=== PATIENT | female | born 1995 | race American Indian/Alaskan Native ===

== ENCOUNTER 2020-04-18 05:00 | Inpatient (IN) | payer BC, MEDICAID ==
[2020-04-18] MEDS: Lactated Ringers 1,000 ML IV ONE ×3 (06:10→12:45)
[2020-04-18] MEDS ORDERED: Citric Acid/Sodium Citrate Solution 30 ML Cup ONE (06:47)
[2020-04-18] MEDS ORDERED: Sodium Chloride 0.9% 10 ML Syringe FLUSH PRN (06:59)
[2020-04-18] MEDS ORDERED: Tranexamic Acid 1,000 MG in Sodium Chloride 0.9% 100 ML IV PRN (06:59)
[2020-04-18] MEDS ORDERED: ceFAZolin 2 GM in Premix Bag 1 BAG IV ONE (06:59)
[2020-04-18] MEDS ORDERED: Oxytocin/Normal Saline 30 UNIT/500 ML BAG IV SCH (07:00)
[2020-04-18] MEDS ORDERED: Citric Acid/Sodium Citrate Solution 30 ML Cup PO ONE (07:00)
[2020-04-18] MEDS ORDERED: Dexmedetomidine 200 MCG/2 ML SDV ONE (07:07)
[2020-04-18] MEDS ORDERED: Ropivacaine 0.5% 5 MG/ML 20 ML SDV ONE ×2 (07:07→15:52)
[2020-04-18] MEDS ORDERED: Succinylcholine 200 MG/10 ML MDV ONE (07:08)
[2020-04-18] MEDS ORDERED: Rocuronium 100 MG/10 ML MDV ONE (07:08)
[2020-04-18] MEDS ORDERED: Oxytocin/Normal Saline 60 UNIT/1,000 ML BAG ONE (07:10)
[2020-04-18] MEDS: Lactated Ringers 1,000 ML IV SCH ×3 (07:15→20:41)
[2020-04-18] MEDS ORDERED: Sodium Chloride 0.9% 100 ML ONE (07:21)
--- NOTE | 2020-04-18 07:25 | PCM.LDHP ---
L&D History of Present Illness - General Date of Service: 04/18/20 (pre-op H&P) Admit Problem/Dx: Admission Diagnosis/Problem Admission Diagnosis/Problem 04/18/20 07:18 24yo with SROM and labor --RCS, unclear dates Source of Information: Patient, Family, Old Records, Significant Other History Limitations: Reports: Altered Mental Status - History of Present Illness Introduction:: Came in with SROM and painful CXNs with hx of prior and declines . NST reactive, cat 1 strip. Timing/Duration: Reports: minutes: (2-3) Location, : Reports: Uterus Quality: Reports: Sharp Severity: Moderate - Related Data Allergies/Adverse Reactions: Allergies Allergy/AdvReac Type Severity Reaction Status Date / Time No Known Allergies Allergy Verified 04/18/20 07:15 Past Medical History - History Comment History Comment: see EPIC notes. Social & Family History - Tobacco Use Smoking Status *Q: Current Every Day Smoker - Recreational Drug Use Recreational Drug Type: Reports: Amphetamines (Speed), Marijuana/Hashish, Methamphetamine (Hx meth use--states Son, but admit screen positive) H&P Review of Systems - Review of Systems: Review Of Systems: Comprehensive ROS is negative, except as noted in HPI. L&D Exam - Exam Exam: See Below - Vital Signs Vital Signs: Last Vital Signs Temp 98.0 F 04/18/20 05:06 Pulse 102 H 04/18/20 05:06 Resp BP 139/93 H 04/18/20 05:06 Pulse Ox Weight: 199 lb - OB Specific Contraction Frequency (min): irregular tracing Contraction Intensity: Strong - Wahl Score Wahl Score Cervix Position: Midposition Wahl Score Consistency: Soft Wahl Score Dilation: 1-2 cm Wahl Score 's Station: +1, +2 - Exam General: Alert, Oriented HEENT: Conjunctiva Clear, EACs Clear, EOMI, Hearing Intact, Mucosa Moist & Filer , Nares Patent, Normal Nasal Septum, Posterior Pharynx Clear, TMs Clear, PERRLA Neck: Supple, Trachea Midline Lungs: Clear to Auscultation, Normal Respiratory Effort Cardiovascular: Regular Rate, Regular Rhythm GI/Abdominal Exam: Normal Bowel Sounds, Soft, Non-Tender, No Organomegaly, No Distention, No Abnormal Bruit, No Mass, Pelvis Stable Rectal Exam: Normal Exam, Normal Rectal Tone Genitourinary: Normal external exam, Normal bimanual exam, Normal speculum exam Back Exam: Normal Inspection, Full Range of Motion Extremities: Normal Inspection, Normal Range of Motion, Non-Tender, No Pedal Edema, Normal Capillary Refill Skin: Warm, Dry, Intact, Rash Neurological: Cranial Nerves Intact, Reflexes Equal Bilateral Psychiatric: Alert, Normal Affect, Normal Mood - Patient Data Lab Results Last 24 hrs: Laboratory Results - last 24 hr 04/18/20 04/18/20 04/18/20 Range/Units 05:25 05:25 05:25 Urine Color Yellow (YELLOW) Urine Appearance Slightly cloudy (CLEAR) Urine pH 7.5 (5.0-9.0) Ur Specific [place] 1.025 (1.005-1.030) Urine Protein Negative (NEGATIVE) Urine Glucose (UA) Negative (NEGATIVE) Urine Ketones Negative (NEGATIVE) Urine Occult Blood Trace-intact H (NEGATIVE) Urine Nitrite Negative (NEGATIVE) Urine Bilirubin Negative (NEGATIVE) Urine Urobilinogen 0.2 (0.2-1.0) mg/dL Ur Leukocyte Esterase Small H (NEGATIVE) Membrane Rupture Positive (NEG) Urine Opiates Screen Negative (NEGATIVE) Ur Oxycodone Screen Negative (NEGATIVE) Urine Methadone Screen Negative (NEGATIVE) Ur Barbiturates Screen Negative (NEGATIVE) U Tricyclic Antidepress Negative (NEGATIVE) Ur Phencyclidine Scrn Negative (NEGATIVE) Ur Amphetamine Screen Negative (NEGATIVE) U Methamphetamines Scrn Positive H (NEGATIVE) Urine MDMA Screen Negative (NEGATIVE) U Benzodiazepines Scrn Negative (NEGATIVE) Urine Cocaine Screen Negative (NEGATIVE) U Marijuana (THC) Screen Negative (NEGATIVE) Problem List Initiated/Reviewed/Updated: Yes Orders Last 24hrs: Active Orders 24 hr Category Date Time Status EFM [ Heart Rate] [RC] Click to Edit Care 04/18/20 05:55 Active OB Check [OM.PC] Click To Edit Care 04/18/20 05:58 Ordered CORONAVIRUS COVID-19 PCR PHL Routine Lab 04/18/20 06:54 Ordered Assessment/Plan Comment:: Assessment: 39 week by dates 36w4d by US done last SROM onset active labor anemia +meht on admit Plan: proceed with [facility]IN[facility]anes 2g discussed alternatives, risks and benefits, and they wish to proceed with CORIN[facility] De Santiago to assist all questions answered for Cara lentz
[2020-04-18] MEDS ORDERED: Phenylephrine 1% 10 MG/ML SDV ONE (08:07)
--- NOTE | 2020-04-18 08:22 | PCM.PREANE ---
Preanesthetic Assessment - Procedure Proposed Procedure: urgent repeat csection - Anesthesia/Transfusion/Family Hx Anesthesia History: Prior Anesthesia Without Reaction Family History of Anesthesia Reaction: No Transfusion History: No Prior Transfusion(s) - Review of Systems General: No Symptoms Pulmonary: No Symptoms Cardiovascular: No Symptoms Gastrointestinal: No Symptoms Neurological: No Symptoms Other: Reports: None - Physical Assessment NPO Status Date: 04/17/20 (1800) NPO Status Time: 18:00 Vital Signs: Last Vital Signs Temp 98.0 F 04/18/20 05:06 Pulse 102 H 04/18/20 05:06 Resp BP 139/93 H 04/18/20 05:06 Pulse Ox Height: 5 ft 8 in Weight: 199 lb ASA Class: 2E Mental Status: Alert & Oriented x3 Airway Class: Mallampati = 2 Dentition: Reports: Normal Dentition Thyro-Mental Finger Breadths: 3 Mouth Opening Finger Breadths: 3 ROM/Head Extension: Full Lungs: Clear to Auscultation Cardiovascular: Regular Rate - Lab Values: Laboratory Last Values WBC 12.0 10^3/uL (5.0-10.0) H 04/18/20 06:06 RBC 3.77 10^6/uL (4.2-5.4) L 04/18/20 06:06 Hgb 8.9 g/dL (12.0-16.0) L 04/18/20 06:06 Hct 29.6 % (37.0-47.0) L 04/18/20 06:06 MCV 78.5 fL (80-100) L 04/18/20 06:06 MCH 23.6 pg (27.0-34.0) L 04/18/20 06:06 MCHC 30.1 g/dL (33.0-35.0) L 04/18/20 06:06 Plt Count 320 10^3/uL (150-450) 04/18/20 06:06 Neut % (Auto) 67.3 % (42.2-75.2) 04/18/20 06:06 Lymph % (Auto) 24.1 % (20.5-50.1) 04/18/20 06:06 [place] % (Auto) 7.9 % (2-8) 04/18/20 06:06 Eos % (Auto) 0.4 % (1.0-3.0) L 04/18/20 06:06 Baso % (Auto) 0.3 % (0.0-1.0) 04/18/20 06:06 Urine Color Yellow (YELLOW) 04/18/20 05:25 Urine Appearance Slightly cloudy (CLEAR) 04/18/20 05:25 Urine pH 7.5 (5.0-9.0) 04/18/20 05:25 Ur Specific [place] 1.025 (1.005-1.030) 04/18/20 05:25 Urine Protein Negative (NEGATIVE) 04/18/20 05:25 Urine Glucose (UA) Negative (NEGATIVE) 04/18/20 05:25 Urine Ketones Negative (NEGATIVE) 04/18/20 05:25 Urine Occult Blood Trace-intact (NEGATIVE) H 04/18/20 05:25 Urine Nitrite Negative (NEGATIVE) 04/18/20 05:25 Urine Bilirubin Negative (NEGATIVE) 04/18/20 05:25 Urine Urobilinogen 0.2 mg/dL (0.2-1.0) 04/18/20 05:25 Ur Leukocyte Esterase Small (NEGATIVE) H 04/18/20 05:25 Membrane Rupture Positive (NEG) 04/18/20 05:25 Urine Opiates Screen Negative (NEGATIVE) 04/18/20 05:25 Ur Oxycodone Screen Negative (NEGATIVE) 04/18/20 05:25 Urine Methadone Screen Negative (NEGATIVE) 04/18/20 05:25 Ur Barbiturates Screen Negative (NEGATIVE) 04/18/20 05:25 U Tricyclic Antidepress Negative (NEGATIVE) 04/18/20 05:25 Ur Phencyclidine Scrn Negative (NEGATIVE) 04/18/20 05:25 Ur Amphetamine Screen Negative (NEGATIVE) 04/18/20 05:25 U Methamphetamines Scrn Positive (NEGATIVE) H 04/18/20 05:25 Urine MDMA Screen Negative (NEGATIVE) 04/18/20 05:25 U Benzodiazepines Scrn Negative (NEGATIVE) 04/18/20 05:25 Urine Cocaine Screen Negative (NEGATIVE) 04/18/20 05:25 U Marijuana (THC) Screen Negative (NEGATIVE) 04/18/20 05:25 SARS-CoV-2 RNA (RT-PCR) Negative (NEGATIVE) 04/18/20 07:00 Blood Type O POSITIVE 04/18/20 06:06 Gel Antibody Screen Negative 04/18/20 06:06 - Allergies Allergies/Adverse Reactions: Allergies Allergy/AdvReac Type Severity Reaction Status Date / Time No Known Allergies Allergy Verified 04/18/20 07:15 - Anesthesia Plan Free Text/Narrative:: sab and bilateral taps - Acknowledgements Anesthesia Type Planned: Spinal Pt an Appropriate Candidate for the Planned Anesthesia: Yes Alternatives and Risks of Anesthesia Discussed w Pt/Guardian: Yes Pt/Guardian Understands and Agrees with Anesthesia Plan: Yes Additional Comments: marijuana and methamphetamine user PreAnesthesia Questionnaire - History Comment History Comment: see EPIC notes. - SUBSTANCE USE Smoking Status *Q: Current Every Day Smoker Recreational Drug Type: Reports: Amphetamines (Speed), Marijuana/Hashish, Methamphetamine (Hx meth use--states Son, but admit screen positive) - CURRENT (IN HOUSE) MEDS Current Meds: Current Medications Oxytocin/Sodium Chloride (Pitocin In Ns 30 Unit/500 Ml) 30 unit in 500 mls @ 2 mls/hr IV TITRATE EULOGIO; Protocol Tranexamic Acid 1,000 mg/ (Sodium Chloride) 110 mls @ 660 mls/hr IV ONETIME PRN PRN Reason: Bleeding Sodium Chloride (Saline Flush) 10 ml FLUSH ASDIRECTED PRN PRN Reason: Keep Vein Open Discontinued Medications Citric Acid/Sodium Citrate (Bicitra Solution) Confirm Administered Dose 30 ml .ROUTE .STK-MED ONE Stop: 04/18/20 06:48 Dexmedetomidine HCl (Precedex) Confirm Administered Dose 200 mcg .ROUTE .STK- MED ONE Stop: 04/18/20 07:08 Lactated Ringer's (Ringers, Lactated) 1,000 mls @ 999 mls/hr IV .BOLUS ONE Stop: 04/18/20 06:58 Last Admin: 04/18/20 06:10 Dose: 999 mls/hr Oxytocin/Sodium Chloride (Pitocin In Ns 30 Unit/500 Ml) Confirm Administered Dose 60 unit in 1,000 mls @ as directed .ROUTE .STK-MED ONE Stop: 04/18/20 07:11 Sodium Chloride (Normal Saline) Confirm Administered Dose 100 mls @ as directed .ROUTE .STK-MED ONE Stop: 04/18/20 07:22 Cefazolin Sodium/Dextrose 2 gm (/ Premix) 50 mls @ 100 mls/hr IV ONETIME ONE Stop: 04/18/20 07:28 Phenylephrine HCl (Augustin-Synephrine) Confirm Administered Dose 10 mg .ROUTE .STK- MED ONE Stop: 04/18/20 08:08 Rocuronium [place] (Zemuron) Confirm Administered Dose 100 mg .ROUTE .STK-MED ONE Stop: 04/18/20 07:09 Ropivacaine (Naropin 0.5%) Confirm Administered Dose 40 ml .ROUTE .STK-MED ONE Stop: 04/18/20 07:08 Succinylcholine Chloride (Quelicin) Confirm Administered Dose 200 mg .ROUTE .STK -MED ONE Stop: 04/18/20 07:09
--- NOTE | 2020-04-18 08:53 | PCM.PRNOTE ---
- Free Text/Narrative Note: TAP Blocks. After informed consent, Time out complete. Abdomen prepped with chlorhexidine. Using ultrasound guidance Bilateral TAP blocks complete. 30mL 0.25% ropivicaine with 4 mg decadron placed incrementally in the tranversus abdominal plane bilaterally. Pt. tolerated procedure well. All needles accounted for and disposed of in sharps containe.
[2020-04-18] MEDS ORDERED: Carboprost Tromethamine 250 MCG/1 ML Amp IM PRN (09:12)
[2020-04-18] MEDS ORDERED: ePHEDrine 50 MG/ML SDV IVPUSH PRN (09:12)
[2020-04-18] MEDS ORDERED: diphenhydrAMINE 50 MG/ML SDV IVPUSH PRN (09:12)
[2020-04-18] MEDS ORDERED: Methylergonovine 0.2 MG/1 ML Amp IM PRN (09:12)
[2020-04-18] MEDS ORDERED: Naloxone 2 MG/2 ML Syringe IVPUSH PRN (09:12)
[2020-04-18] MEDS ORDERED: Misoprostol 400 MCG (4 X 100 MCG TAB) RECTAL PRN (09:12)
[2020-04-18] MEDS ORDERED: Ondansetron 4 MG/2 ML SDV IVPUSH PRN (09:12)
[2020-04-18] MEDS ORDERED: Acetaminophen 325 MG Tab PO PRN (09:12)
[2020-04-18] MEDS ORDERED: Oxytocin/Normal Saline 30 UNIT/500 ML BAG IV ONE (10:10)
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
[2020-04-18] MEDS: Simethicone 80 MG Tab.Chew PO SCH ×3 (15:13→20:37)
[2020-04-18] MEDS: Ketorolac 30 MG/ML SDV IVPUSH SCH ×2 (15:40→20:37)
[2020-04-18] MEDS: ceFAZolin 1 GM in Premix Bag 1 BAG IV SCH ×2 (15:46→22:05)
[2020-04-18] MEDS ORDERED: Sodium Chloride 0.9% 100 ML IV ONE (15:52)
[2020-04-18] MEDS ORDERED: Dexamethasone 4 MG/ML SDV ONE (15:52)
[2020-04-19] MEDS: Ketorolac 30 MG/ML SDV IVPUSH SCH (02:17)
[2020-04-19] MEDS: Lactated Ringers 1,000 ML IV SCH (02:20)
[2020-04-19] MEDS: ceFAZolin 1 GM in Premix Bag 1 BAG IV SCH (06:04)
[2020-04-19] MEDS: Simethicone 80 MG Tab.Chew PO SCH ×4 (09:30→21:31)
[2020-04-19] MEDS: Docusate Sodium 100 MG Cap PO PRN ×2 (09:31→21:28)
[2020-04-19] MEDS: Prenatal Multivitamin with Calcium/Folic Acid/Iron Tab PO SCH (09:31)
[2020-04-19] MEDS: Acetaminophen/oxyCODONE 325-5 MG Tab PO PRN ×4 (09:32→21:29)
--- NOTE | 2020-04-19 09:48 | PCM.POSTAN ---
POST ANESTHESIA ASSESSMENT - MENTAL STATUS Mental Status: Alert - VITAL SIGNS Vital Signs: Last Vital Signs Temp 98.1 F 04/19/20 07:54 Pulse 82 04/19/20 07:54 Resp 20 04/19/20 07:54 BP 134/83 04/19/20 07:54 Pulse Ox 100 04/19/20 04:00 - RESPIRATORY Respiratory Status: Respiratory Rate WNL - CARDIOVASCULAR CV Status: Pulse Rate WNL - GASTROINTESTINAL GI Status: No Symptoms - POST OP HYDRATION Hydration Status: Adequate & Stable - OBSERVATIONS Free Text/Narrative:: Pt. status post repeat csection. TAP blocks worked well. No discomfort until this am. No ARCs.
--- NOTE | 2020-04-19 12:29 | PCM.PN ---
- General Info Date of Service: 04/19/20 (POD/PPD #1) Admission Dx/Problem (Free Text): Admission Diagnosis/Problem Admission Diagnosis/Problem 04/18/20 07:18 Term with prior , labor onset and SROM, declining 24yo with SROM and labor --RCS, unclear dates Subjective Update: Anais is a 24yo G2 now P2002 who is PPD/POD #1 s/p RCS at term for SROM and onset labor. she had spinal anesthesia, which is resolved. ambulated already. Chin removed and has voided on her own--1000cc eating without nausea or vomiting Toradol. Ancef completed. Bottle feeding Functional Status: Reports: Pain Controlled, Tolerating Diet, Ambulating, Urinating - Review of Systems General: Reports: No Symptoms HEENT: Reports: No Symptoms Pulmonary: Reports: No Symptoms Cardiovascular: Reports: No Symptoms Gastrointestinal: Reports: No Symptoms Genitourinary: Reports: No Symptoms Musculoskeletal: Reports: No Symptoms Skin: Reports: No Symptoms, Rash Neurological: Reports: No Symptoms Psychiatric: Reports: No Symptoms - Patient Data Vitals - Most Recent: Last Vital Signs Temp 98.4 F 04/19/20 12:00 Pulse 78 04/19/20 12:00 Resp 18 04/19/20 12:00 BP 128/74 04/19/20 12:00 Pulse Ox 98 04/19/20 12:00 Weight - Most Recent: 199 lb I&O - Last 24 Hours: Intake & Output 04/18/20 04/19/20 04/19/20 22:59 06:59 14:59 Intake Total 4650 1280 Output Total 875 1350 1000 Balance 3775 -70 -1000 Lab Results Last 24 Hours: Laboratory Results - last 24 hr 04/19/20 Range/Units 05:30 WBC 20.1 H (5.0-10.0) 10^3/uL RBC 3.32 L (4.2-5.4) 10^6/uL Hgb 7.9 L (12.0-16.0) g/dL Hct 26.4 L (37.0-47.0) % MCV 79.5 L (80-100) fL MCH 23.8 L (27.0-34.0) pg MCHC 29.9 L (33.0-35.0) g/dL Plt Count 288 (150-450) 10^3/uL Med Orders - Current: Current Medications Acetaminophen (Tylenol) 650 mg PO Q6H PRN PRN Reason: mild pain or fever Carboprost Tromethamine (Hemabate Ds) 250 mcg IM ONETIME PRN PRN Reason: Bleeding Diphenhydramine HCl (Benadryl) 25 mg IVPUSH Q6H PRN PRN Reason: Itching or Nausea Docusate Sodium (Colace) 100 mg PO Q12H PRN PRN Reason: Constipation Last Admin: 04/19/20 09:31 Dose: 100 mg Ephedrine Sulfate (Ephedrine Sulfate) 5 mg IVPUSH SEECOMMENT PRN PRN Reason: Other Oxytocin/Sodium Chloride (Pitocin In Ns 30 Unit/500 Ml) 30 unit in 500 mls @ 2 mls/hr IV TITRATE EULOGIO; Protocol Last Titration: 04/18/20 11:15 Dose: 0 mls/hr Tranexamic Acid 1,000 mg/ (Sodium Chloride) 110 mls @ 660 mls/hr IV ONETIME PRN PRN Reason: Bleeding Lactated Ringer's (Ringers, Lactated) 1,000 mls @ 125 mls/hr IV ASDIRECTED EULOGIO Last Admin: 04/19/20 02:20 Dose: 125 mls/hr Ibuprofen (Motrin) 800 mg PO Q8H PRN PRN Reason: mild pain or fever Methylergonovine Maleate (Methergine) 0.2 mg IM ONETIME PRN PRN Reason: Excessive Vaginal Bleeding Misoprostol (Cytotec) 800 mcg RECTAL ASDIRECTED PRN PRN Reason: Excessive bleeding Naloxone HCl (Narcan) 0.1 mg IVPUSH SEECOMMENT PRN PRN Reason: Respiratory Depression Ondansetron HCl (Zofran) 4 mg IVPUSH Q4H PRN PRN Reason: Nausea/Vomiting Oxycodone/Acetaminophen (Percocet 325-5 Mg) 1 tab PO Q4H PRN PRN Reason: Pain (moderate 4-6) Last Admin: 04/19/20 09:32 Dose: 1 tab Oxycodone/Acetaminophen (Percocet 325-5 Mg) 2 tab PO Q4H PRN PRN Reason: Pain (moderate 4-6) Prenat Multivit/[place]/Iron/Folic Ac ( Plus Iron) 1 each PO DAILY [facility] Last Admin: 04/19/20 09:31 Dose: 1 each Simethicone (Simethicone) 160 mg PO QID [facility] Last Admin: 04/19/20 09:30 Dose: 160 mg Sodium Chloride (Saline Flush) 10 ml FLUSH ASDIRECTED PRN PRN Reason: Keep Vein Open Discontinued Medications Citric Acid/Sodium Citrate (Bicitra Solution) Confirm Administered Dose 30 ml .ROUTE .STK-MED ONE Stop: 04/18/20 06:48 Last Admin: 04/18/20 12:34 Dose: Not Given Citric Acid/Sodium Citrate (Bicitra Solution) 30 ml PO ONETIME ONE Stop: 04/18/20 07:01 Last Admin: 04/18/20 07:00 Dose: 30 ml Dexmedetomidine HCl (Precedex) Confirm Administered Dose 200 mcg .ROUTE .STK- MED ONE Stop: 04/18/20 07:08 Lactated Ringer's (Ringers, Lactated) 1,000 mls @ 999 mls/hr IV .BOLUS ONE Stop: 04/18/20 06:58 Last Infusion: 04/18/20 12:45 Dose: Infused Oxytocin/Sodium Chloride (Pitocin In Ns 30 Unit/500 Ml) Confirm Administered Dose 60 unit in 1,000 mls @ as directed .ROUTE .STK-MED ONE Stop: 04/18/20 07:11 Sodium Chloride (Normal Saline) Confirm Administered Dose 100 mls @ as directed .ROUTE .STK-MED ONE Stop: 04/18/20 07:22 Cefazolin Sodium/Dextrose 2 gm (/ Premix) 50 mls @ 100 mls/hr IV ONETIME ONE Stop: 04/18/20 07:28 Last Admin: 04/18/20 07:31 Dose: 100 mls/hr Cefazolin Sodium/Dextrose 1 gm (/ Premix) 50 mls @ 100 mls/hr IV Q8HR EULOGIO Stop: 04/19/20 06:29 Last Admin: 04/19/20 06:04 Dose: 100 mls/hr Oxytocin/Sodium Chloride (Pitocin In Ns 30 Unit/500 Ml) 30 unit in 500 mls @ as directed IV .STK-MED ONE Stop: 04/18/20 10:11 Ketorolac Tromethamine (Toradol) 15 mg IVPUSH Q6H EULOGIO Stop: 04/19/20 02:31 Last Admin: 04/19/20 02:17 Dose: 15 mg Phenylephrine HCl (Augustin-Synephrine) Confirm Administered Dose 10 mg .ROUTE .STK- MED ONE Stop: 04/18/20 08:08 Rocuronium [place] (Zemuron) Confirm Administered Dose 100 mg .ROUTE .STK-MED ONE Stop: 04/18/20 07:09 Ropivacaine (Naropin 0.5%) Confirm Administered Dose 40 ml .ROUTE .STK-MED ONE Stop: 04/18/20 07:08 Succinylcholine Chloride (Quelicin) Confirm Administered Dose 200 mg .ROUTE .STK -MED ONE Stop: 04/18/20 07:09 - Exam General: Alert, Oriented HEENT: Pupils Equal, Pupils Reactive Lungs: Clear to Auscultation, Normal Respiratory Effort Cardiovascular: Regular Rate, Regular Rhythm, No Murmurs GI/Abdominal Exam: Normal Bowel Sounds, Soft, Non-Tender, No Distention, No Mass (Female) Exam: Normal External Exam Back Exam: Normal Inspection Extremities: Normal Inspection, Normal Range of Motion, Non-Tender, Normal Capillary Refill, Pedal Edema Skin: Warm, Dry, Intact, Rash Wound/Incisions: Healing Well, Dressing Dry and Intact Neurological: No New Focal Deficit Psy/Mental Status: Alert, Normal Affect, Normal Mood Sepsis Event Note - Evaluation Sepsis Screening Result: No Definite Risk - Focused Exam Vital Signs: Vital Signs Temp Pulse Resp BP Pulse Ox 04/19/20 12:00 98.4 F 78 18 128/74 98 04/19/20 07:54 98.1 F 82 20 134/83 04/19/20 04:00 97.7 F 68 16 127/83 100 Date Exam was Performed: 04/19/20 Time Exam was Performed: 12:24 - Problem List Review Problem List Initiated/Reviewed/Updated: Yes - My Orders Last 24 Hours: My Active Orders 04/18/20 13:00 Simethicone 160 mg PO QID 04/19/20 09:00 Vit with Ca/FA/Iron [ Plus Iron] 1 each PO DAILY 04/19/20 10:00 Ibuprofen [Motrin] 800 mg PO Q8H PRN - Plan Plan:: Assessment: 39 week by dates 36w4d by US done last SROM onset active labor anemia +meht on admit Plan: proceed with [facility] Ancef 2g discussed alternatives, risks and benefits, and they wish to proceed with [facility] Jonnathan to assist all questions answered for Cara [facility] DOS: 04-19-2020 POD #1 doing well anemia Hgb dropped from 8.9 to 7.9 VSS afebrile. Ancef completed continue to follow routine orders and care. all questions answered b
[2020-04-19] MEDS: Ibuprofen 800 MG Tab PO PRN ×2 (13:04→21:29)
[2020-04-20] MEDS: Acetaminophen/oxyCODONE 325-5 MG Tab PO PRN ×4 (05:37→22:39)
[2020-04-20] MEDS: Simethicone 80 MG Tab.Chew PO SCH ×4 (09:41→22:52)
[2020-04-20] MEDS: Docusate Sodium 100 MG Cap PO PRN (09:42)
[2020-04-20] MEDS: Prenatal Multivitamin with Calcium/Folic Acid/Iron Tab PO SCH (09:42)
[2020-04-20] MEDS: Ibuprofen 800 MG Tab PO PRN ×2 (09:43→17:20)
[2020-04-20] MEDS ORDERED: Ondansetron 4 MG/2 ML SDV IV ONE (16:26)
[2020-04-20] MEDS ORDERED: Ketorolac 30 MG/ML SDV IVPUSH ONE (16:26)
[2020-04-20] MEDS ORDERED: Dexmedetomidine 200 MCG/2 ML SDV IV ONE (16:26)
[2020-04-20] MEDS ORDERED: Ropivacaine 0.5% 5 MG/ML 20 ML SDV ONE (16:26)
[2020-04-20] MEDS ORDERED: Phenylephrine 1% 10 MG/ML SDV IV ONE (16:26)
[2020-04-20] MEDS ORDERED: ePHEDrine 50 MG/ML SDV IV ONE (16:26)
--- NOTE | 2020-04-20 17:54 | PCM.PN ---
- Patient Data Vitals - Most Recent: Last Vital Signs Temp 97.8 F 04/20/20 16:00 Pulse 77 04/20/20 16:00 Resp 18 04/20/20 16:00 BP 138/82 04/20/20 16:00 Pulse Ox 98 04/20/20 16:00 Weight - Most Recent: 199 lb Lab Results Last 24 Hours: Laboratory Results - last 24 hr 04/20/20 Range/Units 15:15 Urine Opiates Screen Negative (NEGATIVE) Ur Oxycodone Screen Positive H (NEGATIVE) Urine Methadone Screen Negative (NEGATIVE) Ur Barbiturates Screen Negative (NEGATIVE) U Tricyclic Antidepress Negative (NEGATIVE) Ur Phencyclidine Scrn Negative (NEGATIVE) Ur Amphetamine Screen Positive H (NEGATIVE) U Methamphetamines Scrn Positive H (NEGATIVE) Urine MDMA Screen Negative (NEGATIVE) U Benzodiazepines Scrn Negative (NEGATIVE) Urine Cocaine Screen Negative (NEGATIVE) U Marijuana (THC) Screen Negative (NEGATIVE) Med Orders - Current: Current Medications Acetaminophen (Tylenol) 650 mg PO Q6H PRN PRN Reason: mild pain or fever Carboprost Tromethamine (Hemabate Ds) 250 mcg IM ONETIME PRN PRN Reason: Bleeding Diphenhydramine HCl (Benadryl) 25 mg IVPUSH Q6H PRN PRN Reason: Itching or Nausea Docusate Sodium (Colace) 100 mg PO Q12H PRN PRN Reason: Constipation Last Admin: 04/20/20 09:42 Dose: 100 mg Ephedrine Sulfate (Ephedrine Sulfate) 5 mg IVPUSH SEECOMMENT PRN PRN Reason: Other Oxytocin/Sodium Chloride (Pitocin In Ns 30 Unit/500 Ml) 30 unit in 500 mls @ 2 mls/hr IV TITRATE EULOGIO; Protocol Last Titration: 04/18/20 11:15 Dose: 0 mls/hr Tranexamic Acid 1,000 mg/ (Sodium Chloride) 110 mls @ 660 mls/hr IV ONETIME PRN PRN Reason: Bleeding Lactated Ringer's (Ringers, Lactated) 1,000 mls @ 125 mls/hr IV ASDIRECTED EULOGIO Last Admin: 04/19/20 02:20 Dose: 125 mls/hr Ibuprofen (Motrin) 800 mg PO Q8H PRN PRN Reason: mild pain or fever Last Admin: 04/20/20 17:20 Dose: 800 mg Methylergonovine Maleate (Methergine) 0.2 mg IM ONETIME PRN PRN Reason: Excessive Vaginal Bleeding Misoprostol (Cytotec) 800 mcg RECTAL ASDIRECTED PRN PRN Reason: Excessive bleeding Naloxone HCl (Narcan) 0.1 mg IVPUSH SEECOMMENT PRN PRN Reason: Respiratory Depression Ondansetron HCl (Zofran) 4 mg IVPUSH Q4H PRN PRN Reason: Nausea/Vomiting Oxycodone/Acetaminophen (Percocet 325-5 Mg) 1 tab PO Q4H PRN PRN Reason: Pain (moderate 4-6) Last Admin: 04/20/20 09:44 Dose: 1 tab Oxycodone/Acetaminophen (Percocet 325-5 Mg) 2 tab PO Q4H PRN PRN Reason: Pain (moderate 4-6) Last Admin: 04/20/20 17:20 Dose: 2 tab Prenat Multivit/[employer]/Iron/Folic Ac ( Plus Iron) 1 each PO DAILY [facility] Last Admin: 04/20/20 09:42 Dose: 1 each Simethicone (Simethicone) 160 mg PO QID [facility] Last Admin: 04/20/20 17:21 Dose: 160 mg Sodium Chloride (Saline Flush) 10 ml FLUSH ASDIRECTED PRN PRN Reason: Keep Vein Open Discontinued Medications Citric Acid/Sodium Citrate (Bicitra Solution) Confirm Administered Dose 30 ml .ROUTE .STK-MED ONE Stop: 04/18/20 06:48 Last Admin: 04/18/20 12:34 Dose: Not Given Citric Acid/Sodium Citrate (Bicitra Solution) 30 ml PO ONETIME ONE Stop: 04/18/20 07:01 Last Admin: 04/18/20 07:00 Dose: 30 ml Dexamethasone (Dexamethasone) 8 mg .XX .STK-MED ONE Stop: 04/18/20 15:53 Dexmedetomidine HCl (Precedex) Confirm Administered Dose 200 mcg .ROUTE .STK- MED ONE Stop: 04/18/20 07:08 Dexmedetomidine HCl (Precedex) 10 mcg IV .STK-MED ONE Stop: 04/20/20 16:27 Ephedrine Sulfate (Ephedrine Sulfate) 50 mg IV .STK-MED ONE Stop: 04/20/20 16:27 Lactated Ringer's (Ringers, Lactated) 1,000 mls @ 999 mls/hr IV .BOLUS ONE Stop: 04/18/20 06:58 Last Infusion: 04/18/20 12:45 Dose: Infused Oxytocin/Sodium Chloride (Pitocin In Ns 30 Unit/500 Ml) Confirm Administered Dose 60 unit in 1,000 mls @ as directed .ROUTE .STK-MED ONE Stop: 04/18/20 07:11 Sodium Chloride (Normal Saline) Confirm Administered Dose 100 mls @ as directed .ROUTE .STK-MED ONE Stop: 04/18/20 07:22 Cefazolin Sodium/Dextrose 2 gm (/ Premix) 50 mls @ 100 mls/hr IV ONETIME ONE Stop: 04/18/20 07:28 Last Admin: 04/18/20 07:31 Dose: 100 mls/hr Cefazolin Sodium/Dextrose 1 gm (/ Premix) 50 mls @ 100 mls/hr IV Q8HR EULOGIO Stop: 04/19/20 06:29 Last Admin: 04/19/20 06:04 Dose: 100 mls/hr Oxytocin/Sodium Chloride (Pitocin In Ns 30 Unit/500 Ml) 30 unit in 500 mls @ as directed IV .STK-MED ONE Stop: 04/18/20 10:11 Sodium Chloride (Normal Saline) 100 mls @ as directed IV .STK-MED ONE Stop: 04/18/20 15:53 Ketorolac Tromethamine (Toradol) 15 mg IVPUSH Q6H EULOGIO Stop: 04/19/20 02:31 Last Admin: 04/19/20 02:17 Dose: 15 mg Ketorolac Tromethamine (Toradol) 30 mg IVPUSH .STK-MED ONE Stop: 04/20/20 16:27 Ondansetron HCl (Zofran) 4 mg IV .STK-MED ONE Stop: 04/20/20 16:27 Phenylephrine HCl (Augustin-Synephrine) Confirm Administered Dose 10 mg .ROUTE .STK- MED ONE Stop: 04/18/20 08:08 Phenylephrine HCl (Augustin-Synephrine) 0.5 mg IV .STK-MED ONE Stop: 04/20/20 16:27 Rocuronium [place] (Zemuron) Confirm Administered Dose 100 mg .ROUTE .STK-MED ONE Stop: 04/18/20 07:09 Ropivacaine (Naropin 0.5%) Confirm Administered Dose 40 ml .ROUTE .STK-MED ONE Stop: 04/18/20 07:08 Ropivacaine (Naropin 0.5%) 40 ml .XX .STK-MED ONE Stop: 04/18/20 15:53 Ropivacaine (Naropin 0.5%) 40 ml .XX .STK-MED ONE Stop: 04/20/20 16:27 Succinylcholine Chloride (Quelicin) Confirm Administered Dose 200 mg .ROUTE .STK -MED ONE Stop: 04/18/20 07:09 Sepsis Event Note - Evaluation Sepsis Screening Result: No Definite Risk - Focused Exam Vital Signs: Vital Signs Temp Pulse Resp BP Pulse Ox 04/20/20 16:00 97.8 F 77 18 138/82 98 04/20/20 12:00 98 F 88 18 128/85 98 04/20/20 08:00 97.9 F 96 18 135/97 H 97 Date Exam was Performed: 04/20/20 Time Exam was Performed: 17:51 - Problem List Review Problem List Initiated/Reviewed/Updated: Yes - My Orders Last 24 Hours: My Active Orders 04/20/20 17:09 MISC TEST Routine 04/20/20 Dinner Regular Diet [DIET] 04/21/20 06:00 CBC W/O DIFF,HEMOGRAM [HEME] Routine - Plan Plan:: Assessment: 39 week by dates 36w4d by US done last SROM onset active labor anemia +meht on admit Plan: proceed with [facility] Mario Alberto 2g discussed alternatives, risks and benefits, and they wish to proceed with [facility] Jonnathan to assist all questions answered for [facility] DOS: 04-19-2020 POD #1 doing well anemia Hgb dropped from 8.9 to 7.9 VSS afebrile. Ancef completed continue to follow routine orders and care. all questions answered [facility] DOS: 04-20-2020 social services counselor has seen re: positive drug screen/use. considering options. with anemia, Nausea/vomiting and pain, may look at keeping until Saturday. will see if social services counselor makes decision re: disposition of baby, and also mom's clinical course and lab results through tomorrow. all questions answered. [facility]
[2020-04-20] MEDS: Ondansetron 4 MG Tab.DIS PO PRN ×2 (18:24→22:39)
[2020-04-21] MEDS: Ibuprofen 800 MG Tab PO PRN ×2 (04:45→16:15)
[2020-04-21] MEDS: Acetaminophen/oxyCODONE 325-5 MG Tab PO PRN ×4 (04:46→20:20)
[2020-04-21] MEDS: Prenatal Multivitamin with Calcium/Folic Acid/Iron Tab PO SCH (08:46)
[2020-04-21] MEDS: Docusate Sodium 100 MG Cap PO PRN ×2 (08:46→20:19)
[2020-04-21] MEDS: Simethicone 80 MG Tab.Chew PO SCH ×4 (08:47→20:19)
--- NOTE | 2020-04-21 09:00 | PCM.SN.2 ---
- Free Text/Narrative Note: DOS: 04-21-2020 with pain management issues, nausea and vomiting, and difficulties with ambulation, etc, will plan on continuing to monitor, advance activity, etc over the next 24 hours, and likely discharge home tomorrow morning if stable. BP was also elevated again last night, and will keep a close eye on it. b
[2020-04-22] MEDS: Acetaminophen/oxyCODONE 325-5 MG Tab PO PRN (02:18)
[2020-04-22] MEDS: Ibuprofen 800 MG Tab PO PRN (02:19)
[2020-04-22] MEDS: Simethicone 80 MG Tab.Chew PO SCH ×2 (08:18→15:53)
[2020-04-22] MEDS: Docusate Sodium 100 MG Cap PO PRN (08:19)
[2020-04-22] MEDS: Prenatal Multivitamin with Calcium/Folic Acid/Iron Tab PO SCH (08:20)
--- NOTE | 2020-04-22 11:01 | PCM.DCSUM1 ---
Discharge Summary - Hospital Course Free Text/Narrative:: Discharge summary: Diagnosis: Stroke: No - Discharge Data Discharge Disposition: Home, Self-Care 01 Condition: Good - Referral to Home Health Primary Care Physician: Robin Phelps - Discharge Plan *PRESCRIPTION DRUG MONITORING PROGRAM REVIEWED*: No *COPY OF PRESCRIPTION DRUG MONITORING REPORT IN PATIENT MILDRED: No - Patient Data Vitals - Most Recent: Last Vital Signs Temp 96.8 F L 04/21/20 20:00 Pulse 98 04/21/20 20:00 Resp 16 04/21/20 20:00 BP 132/88 04/21/20 20:00 Pulse Ox 99 04/21/20 20:00 Weight - Most Recent: 199 lb Med Orders - Current: Current Medications Acetaminophen (Tylenol) 650 mg PO Q6H PRN PRN Reason: mild pain or fever Carboprost Tromethamine (Hemabate Ds) 250 mcg IM ONETIME PRN PRN Reason: Bleeding Diphenhydramine HCl (Benadryl) 25 mg IVPUSH Q6H PRN PRN Reason: Itching or Nausea Docusate Sodium (Colace) 100 mg PO Q12H PRN PRN Reason: Constipation Last Admin: 04/22/20 08:19 Dose: 100 mg Ephedrine Sulfate (Ephedrine Sulfate) 5 mg IVPUSH SEECOMMENT PRN PRN Reason: Other Oxytocin/Sodium Chloride (Pitocin In Ns 30 Unit/500 Ml) 30 unit in 500 mls @ 2 mls/hr IV TITRATE EULOGIO; Protocol Last Titration: 04/18/20 11:15 Dose: 0 mls/hr Tranexamic Acid 1,000 mg/ (Sodium Chloride) 110 mls @ 660 mls/hr IV ONETIME PRN PRN Reason: Bleeding Lactated Ringer's (Ringers, Lactated) 1,000 mls @ 125 mls/hr IV ASDIRECTED EULOGIO Last Admin: 04/19/20 02:20 Dose: 125 mls/hr Ibuprofen (Motrin) 800 mg PO Q8H PRN PRN Reason: mild pain or fever Last Admin: 04/22/20 02:19 Dose: 800 mg Methylergonovine Maleate (Methergine) 0.2 mg IM ONETIME PRN PRN Reason: Excessive Vaginal Bleeding Misoprostol (Cytotec) 800 mcg RECTAL ASDIRECTED PRN PRN Reason: Excessive bleeding Naloxone HCl (Narcan) 0.1 mg IVPUSH SEECOMMENT PRN PRN Reason: Respiratory Depression Ondansetron HCl (Zofran) 4 mg IVPUSH Q4H PRN PRN Reason: Nausea/Vomiting Ondansetron HCl (Zofran Odt) 4 mg PO Q4H PRN PRN Reason: Nausea Last Admin: 04/20/20 22:39 Dose: 4 mg Oxycodone/Acetaminophen (Percocet 325-5 Mg) 1 tab PO Q4H PRN PRN Reason: Pain (moderate 4-6) Last Admin: 04/20/20 09:44 Dose: 1 tab Oxycodone/Acetaminophen (Percocet 325-5 Mg) 2 tab PO Q4H PRN PRN Reason: Pain (moderate 4-6) Last Admin: 04/22/20 02:18 Dose: 2 tab Prenat Multivit/[place]/Iron/Folic Ac ( Plus Iron) 1 each PO DAILY [facility] Last Admin: 04/22/20 08:20 Dose: 1 each Simethicone (Simethicone) 160 mg PO QID [facility] Last Admin: 04/22/20 08:18 Dose: 160 mg Sodium Chloride (Saline Flush) 10 ml FLUSH ASDIRECTED PRN PRN Reason: Keep Vein Open Discontinued Medications Citric Acid/Sodium Citrate (Bicitra Solution) Confirm Administered Dose 30 ml .ROUTE .STK-MED ONE Stop: 04/18/20 06:48 Last Admin: 04/18/20 12:34 Dose: Not Given Citric Acid/Sodium Citrate (Bicitra Solution) 30 ml PO ONETIME ONE Stop: 04/18/20 07:01 Last Admin: 04/18/20 07:00 Dose: 30 ml Dexamethasone (Dexamethasone) 8 mg .XX .STK-MED ONE Stop: 04/18/20 15:53 Dexmedetomidine HCl (Precedex) Confirm Administered Dose 200 mcg .ROUTE .STK- MED ONE Stop: 04/18/20 07:08 Dexmedetomidine HCl (Precedex) 10 mcg IV .STK-MED ONE Stop: 04/20/20 16:27 Ephedrine Sulfate (Ephedrine Sulfate) 50 mg IV .STK-MED ONE Stop: 04/20/20 16:27 Lactated Ringer's (Ringers, Lactated) 1,000 mls @ 999 mls/hr IV .BOLUS ONE Stop: 04/18/20 06:58 Last Infusion: 04/18/20 12:45 Dose: Infused Oxytocin/Sodium Chloride (Pitocin In Ns 30 Unit/500 Ml) Confirm Administered Dose 60 unit in 1,000 mls @ as directed .ROUTE .STK-MED ONE Stop: 04/18/20 07:11 Sodium Chloride (Normal Saline) Confirm Administered Dose 100 mls @ as directed .ROUTE .STK-MED ONE Stop: 04/18/20 07:22 Cefazolin Sodium/Dextrose 2 gm (/ Premix) 50 mls @ 100 mls/hr IV ONETIME ONE Stop: 04/18/20 07:28 Last Admin: 04/18/20 07:31 Dose: 100 mls/hr Cefazolin Sodium/Dextrose 1 gm (/ Premix) 50 mls @ 100 mls/hr IV Q8HR EULOGIO Stop: 04/19/20 06:29 Last Admin: 04/19/20 06:04 Dose: 100 mls/hr Oxytocin/Sodium Chloride (Pitocin In Ns 30 Unit/500 Ml) 30 unit in 500 mls @ as directed IV .STK-MED ONE Stop: 04/18/20 10:11 Sodium Chloride (Normal Saline) 100 mls @ as directed IV .STK-MED ONE Stop: 04/18/20 15:53 Ketorolac Tromethamine (Toradol) 15 mg IVPUSH Q6H EULOGIO Stop: 04/19/20 02:31 Last Admin: 04/19/20 02:17 Dose: 15 mg Ketorolac Tromethamine (Toradol) 30 mg IVPUSH .STK-MED ONE Stop: 04/20/20 16:27 Ondansetron HCl (Zofran) 4 mg IV .STK-MED ONE Stop: 04/20/20 16:27 Phenylephrine HCl (Augustin-Synephrine) Confirm Administered Dose 10 mg .ROUTE .STK- MED ONE Stop: 04/18/20 08:08 Phenylephrine HCl (Augustin-Synephrine) 0.5 mg IV .STK-MED ONE Stop: 04/20/20 16:27 Rocuronium [place] (Zemuron) Confirm Administered Dose 100 mg .ROUTE .STK-MED ONE Stop: 04/18/20 07:09 Ropivacaine (Naropin 0.5%) Confirm Administered Dose 40 ml .ROUTE .STK-MED ONE Stop: 04/18/20 07:08 Ropivacaine (Naropin 0.5%) 40 ml .XX .STK-MED ONE Stop: 04/18/20 15:53 Ropivacaine (Naropin 0.5%) 40 ml .XX .STK-MED ONE Stop: 04/20/20 16:27 Succinylcholine Chloride (Quelicin) Confirm Administered Dose 200 mg .ROUTE .ST -MED ONE Stop: 04/18/20 07:09
== END 2020-04-22 13:30 | disposition home or self-care (01) | DRG 787 ==
LOC: DL.OBCHECK 05:00 → DL.MS 06:59 → OBSVTOIN 07:59
PROVIDERS: ADMIT Family Medicine; ATTEND Family Medicine
PROC: 10D00Z1 Extraction of Products of Conception, Low, Open Approach (ICD-10-PCS; principal; 2020-04-18)
DX: O34.211 Maternal care for low transverse scar from previous cesarean delivery (principal); O99.324 Drug use complicating childbirth; O99.02 Anemia complicating childbirth; D64.9 Anemia, unspecified; O99.334 Smoking (tobacco) complicating childbirth; Z20.828 Contact with and (suspected) exposure to other viral communicable diseases; F17.200 Nicotine dependence, unspecified, uncomplicated; F15.10 Other stimulant abuse, uncomplicated; Z37.0 Single live birth; Z3A.39 39 weeks gestation of pregnancy
CPT/HCPCS: 36415; 59409; 80305-QW; 81003; 84112; 85025; 85027; 86850; 86900; 86901; 94010; A9270-GY; J0690; J1100; J1885; J2370; J2405; J2590; J2795; J7050; J7120; U0002